=== PATIENT | female | born 1965 | race Caucasian/White ===

== ENCOUNTER 2018-04-02 06:26 | Day surgery (SDC) | payer OTHER ==
[~2018-04-02] VITALS: Ht 170.2 cm; Wt 73.6 kg
[~2018-04-02 06:26] MED LIST: RINGERS SOLUTION,LACTATED 1,000 ML IV ONE
[2018-04-02] MEDS ORDERED: ONDANSETRON HCL 4 MG/2 ML VIAL IVP ONE (06:27)
[2018-04-02] MEDS ORDERED: SUCCINYLCHOLINE CHLORIDE 20 MG/ML 10 ML VIAL IVP ONE (06:27)
[2018-04-02] MEDS ORDERED: PROPOFOL 1% 20 ML VIAL IVP ONE (06:27)
[2018-04-02] MEDS ORDERED: MIDAZOLAM HCL 2 MG/2 ML VIAL IVP ONE (06:27)
[2018-04-02] MEDS ORDERED: LIDOCAINE HCL/PF 2% 5 ML VIAL IM ONE (06:27)
[2018-04-02] MEDS ORDERED: 0.9% SODIUM CHLORIDE 10 ML VIAL IVP ONE (06:27)
[2018-04-02] MEDS ORDERED: FentaNYL CITRATE-PF 100 MCG/2 ML VIAL IVP ONE (06:27)
[2018-04-02] MEDS ORDERED: DEXAMETHASONE SOD PHOS 4 MG/ML VIAL IVP ONE (06:27)
[2018-04-02] MEDS ORDERED: AMPICILLIN SODIUM 1 GM/VIAL ONE (07:13)
[2018-04-02 07:17] LABS: BASOPHILS % (AUTO) 0.7 % (0.0-2.0); EOSINOPHILS % (AUTO) 2.9 % (1.0-6.0); HEMOGLOBIN 14.1 g/dL (12.0-16.0); LYMPHOCYTES # (AUTO) 1.6 K/uL (1.0-4.8); LYMPHOCYTES % (AUTO) 18.4 % (22.0-44.0); MEAN CORPUSCULAR HEMOGLOBIN 34.2 pg (26.0-34.0); MEAN CORPUSCULAR HGB CONC 35.3 G/dL (31.0-37.0); MEAN CORPUSCULAR VOLUME 97 fL (80-100); MONOCYTES # (AUTO) 0.8 K/uL (0.1-1.0); MONOCYTES % (AUTO) 9.4 % (2.0-9.0); NEUTROPHILS # (AUTO) 6.1 K/uL (1.8-7.7); NEUTROPHILS % (AUTO) 68.6 % (40.0-70.0); PLATELET COUNT (AUTO) 192 K/uL (150-450); RED BLOOD CELL COUNT(AUTO) 4.13 MIL/uL (4.00-5.20); RED CELL DISTRIBUTION WIDTH 12.5 % (11.5-14.5)
[2018-04-02 07:26] LABS: CALCIUM, TOTAL 10.2 mg/dL (8.8-10.5); CREATININE 1.19 mg/dL (0.60-1.30)
[2018-04-02 07:32] LABS: ALBUMIN 3.8 g/dL (3.4-5.0); BILIRUBIN,TOTAL 0.3 mg/dL (0.1-1.0); TOTAL PROTEIN, SERUM 7.6 g/dL (6.4-8.2)
[2018-04-02] MEDS ORDERED: ONDANSETRON HCL 4 MG/2 ML VIAL IVP PRN (08:30)
[2018-04-02] MEDS ORDERED: MEPERIDINE HCL/PF 25 MG/0.5 ML AMP IVP PRN (08:30)
[2018-04-02] MEDS ORDERED: FentaNYL CITRATE-PF 100 MCG/2 ML VIAL IVP PRN (08:30)
[2018-04-02] MEDS ORDERED: MORPHINE SULFATE 2 MG/ML SYRINGE IVP PRN (08:30)
[2018-04-02] MEDS ORDERED: HYDROmorphone 2 MG/ML SYRINGE IVP PRN (08:30)
[2018-04-02] MEDS ORDERED: OXYMETAZOLINE HCL 0.05% 15 ML NASAL SPRAY NASAL ONE (09:07)
[2018-04-02] MEDS ORDERED: METO25XL PO (12:04)
[2018-04-02] MEDS ORDERED: LINA290C PO (12:04)
[2018-04-02] MEDS ORDERED: LITH300T29 PO ×2 (12:04)
[2018-04-02] MEDS ORDERED: ESOM20CA31 PO (12:04)
[2018-04-02] MEDS ORDERED: THIO50 PO ×3 (12:04)
[2018-04-02] MEDS ORDERED: ASPI81 PO (12:04)
[2018-04-02] MEDS ORDERED: QUET100T PO (12:04)
[2018-04-02] MEDS ORDERED: ZOLP5 PO (12:04)
[2018-04-02] MEDS ORDERED: MULT-1203 PO (12:04)
[2018-04-02] MEDS ORDERED: FOLI1 PO (12:04)
== END 2018-04-02 12:50 | disposition home or self-care (01) ==
LOC: SURGERY 06:26
PROVIDERS: ATTEND Dentist General Practice
DX: K05.30 Chronic periodontitis, unspecified (principal); K21.9 Gastro-esophageal reflux disease without esophagitis; F41.8 Other specified anxiety disorders; I11.9 Hypertensive heart disease without heart failure; F63.81 Intermittent explosive disorder; F72 Severe intellectual disabilities; J45.998 Other asthma; F20.89 Other schizophrenia; F98.3 Pica of infancy and childhood; Z79.82 Long term (current) use of aspirin; Z79.899 Other long term (current) drug therapy
CPT/HCPCS: 36415; 41899; 71045; 80053; 85025; 85610; 85730; 93005; J0290; J0330; J1100; J2250; J2405; J2704; J3010; J3490; J7120

== ENCOUNTER 2024-09-04 06:07 | Day surgery (SDC) | payer OTHER ==
[~2024-09-04] VITALS: Ht 165.1 cm; Wt 65.2 kg
[~2024-09-04 06:07] MED LIST changes: +ASPI-1450 PO; +ESOM20CA31 PO; +FOLI-130 PO; +LINA290C PO; +LITH300T29 PO; +METO25XL PO; +MULT-1203 PO; +QUET100T PO; -RINGERS SOLUTION,LACTATED 1,000 ML IV ONE; +THIO50 PO; +ZOLP-280 PO
[2024-09-04] MEDS ORDERED: LIDOCAINE/PF 2% 5 ML VIAL ONE (06:23)
[2024-09-04] MEDS ORDERED: ONDANSETRON HCL 4 MG/2 ML VIAL ONE (06:23)
[2024-09-04] MEDS ORDERED: GLYCOPYRROLATE 0.2 MG/ML VIAL ONE (06:23)
[2024-09-04] MEDS ORDERED: SUGAMMADEX SODIUM 200 MG/2 ML VIAL IVP ONE (06:23)
[2024-09-04] MEDS ORDERED: PROPOFOL 1% 20 ML VIAL IVP ONE (06:23)
[2024-09-04] MEDS ORDERED: ROCURONIUM BROMIDE 10 MG/ML 5 ML VIAL ONE (06:23)
[2024-09-04] MEDS ORDERED: DEXAMETHASONE SOD PHOS 4 MG/ML VIAL ONE (06:23)
[2024-09-04] MEDS ORDERED: AMPICILLIN SODIUM 2 GM/NS 100 ML IV ONE (06:38)
[2024-09-04] MEDS ORDERED: RINGERS SOLUTION,LACTATED 1,000 ML IV ONE (07:21)
[2024-09-04 07:39] LABS: CREATININE 1.01 mg/dL (0.60-1.30); POTASSIUM 4.9 mmol/L (3.5-5.1)
[2024-09-04 07:45] LABS: BASOPHILS % (AUTO) 0.4 % (0.0-2.0); EOSINOPHILS % (AUTO) 1.9 % (1.0-6.0); HEMATOCRIT 39.4 % (36-46); HEMOGLOBIN 13.3 g/dL (12.0-16.0); LYMPHOCYTES % (AUTO) 10.3 % (22.0-44.0); MEAN CORPUSCULAR HEMOGLOBIN 33.6 pg (26.0-34.0); MEAN CORPUSCULAR HGB CONC 33.8 G/dL (31.0-37.0); MEAN CORPUSCULAR VOLUME 99 fL (80-100); MONOCYTES # (AUTO) 0.9 K/uL (0.1-1.0); MONOCYTES % (AUTO) 8.5 % (2.0-9.0); NEUTROPHILS % (AUTO) 78.9 % (40.0-70.0); PLATELET COUNT (AUTO) 221 K/uL (150-450); RED BLOOD CELL COUNT(AUTO) 3.97 MIL/uL (4.00-5.20); RED CELL DISTRIBUTION WIDTH 13.1 % (11.5-14.5); WHITE BLOOD COUNT (AUTO) 10.1 K/uL (4.5-11.0)
[2024-09-04] MEDS: RINGERS SOLUTION,LACTATED 1,000 ML IV ONE (07:47)
[2024-09-04 07:48] LABS: ALBUMIN 3.5 g/dL (3.4-5.0); BILIRUBIN,TOTAL 0.5 mg/dL (0.1-1.0); TOTAL PROTEIN, SERUM 7.5 g/dL (6.4-8.2)
[2024-09-04] MEDS ORDERED: CHLO50TA53 PO (08:01)
[2024-09-04] MEDS ORDERED: MAGN400T57 PO (08:01)
[2024-09-04] MEDS ORDERED: NALT50TA33 PO (08:01)
[2024-09-04] MEDS ORDERED: PSYL0.525 PO (08:01)
[2024-09-04] MEDS ORDERED: ATOR20TA65 PO (08:01)
[2024-09-04] MEDS ORDERED: CARI3CAP PO (08:01)
[2024-09-04] MEDS ORDERED: CHLO100T36 PO (08:01)
[2024-09-04] MEDS ORDERED: ACET600C PO (08:01)
[2024-09-04] MEDS ORDERED: POLY17PO47 PO (08:01)
[2024-09-04 08:05] LABS: PROTHROMBIN TIME 10.7 SEC (9.4-11.6)
== END 2024-09-04 12:10 | disposition home or self-care (01) ==
LOC: SURGERY 06:07
PROVIDERS: ATTEND Dentist General Practice
DX: K02.9 Dental caries, unspecified (principal); K05.20 Aggressive periodontitis, unspecified; R94.31 Abnormal electrocardiogram [ECG] [EKG]; E78.00 Pure hypercholesterolemia, unspecified; K21.9 Gastro-esophageal reflux disease without esophagitis; J45.909 Unspecified asthma, uncomplicated; F31.9 Bipolar disorder, unspecified; G47.00 Insomnia, unspecified; Z79.899 Other long term (current) drug therapy
CPT/HCPCS: 41899; 71045; 80053; 85025; 85610; 85730; 36415; 93005; J0290; J2704; J1100; J3490 ×4; J2405; J7120; Z7610